=== PATIENT | male | born 1960 | race Caucasian/White ===

== ENCOUNTER 2016-06-18 06:01 | Emergency (ER) | payer MEDICAID ==
[~2016-06-18] VITALS: Ht 182.9 cm; Wt 94.7 kg
[2016-06-18] MEDS ORDERED: LEVO125T5 PO (06:32)
[2016-06-18] MEDS ORDERED: CARV-39 PO (06:32)
[2016-06-18] MEDS ORDERED: LISI-167 PO (06:32)
[2016-06-18] MEDS ORDERED: LISI5TAB7 PO (06:32)
[2016-06-18 06:57] VITALS: BP 140/93
== END 2016-06-18 07:53 | disposition home or self-care (01) ==
LOC: ED 07:37
DX: I10 Essential (primary) hypertension (principal); E03.9 Hypothyroidism, unspecified; I11.0 Hypertensive heart disease with heart failure; I50.9 Heart failure, unspecified; Z76.0 Encounter for issue of repeat prescription
CPT/HCPCS: 99283